=== PATIENT | male | born 1940 | race Two or more races ===

== ENCOUNTER → 2020-11-13 08:00 | Outpatient (CLI) | payer OTHER ==
[~2020-11-13] VITALS: Ht 175.3 cm; Wt 78.0 kg
[~2020-11-13 08:00] MED LIST: AMILODIPINE PO; ATORVASTATIN CA40 MG PO; FORTAMET500 MG PO; TOPROL XL50 M1 PO
== END | disposition home or self-care (01) ==
LOC: SURH → LAB 08:00 → EDSTATUS 11-22 12:20 → CIR.AMB 11-22 16:30 → SURH 11-22 16:32 → EDSTATUS 11-22 16:32
PROVIDERS: ATTEND Surgery
DX: E21.4 Other specified disorders of parathyroid gland (principal); Z03.818 Encounter for observation for suspected exposure to other biological agents ruled out; E21.0 Primary hyperparathyroidism

== ENCOUNTER 2021-04-15 04:50 | Day surgery (SDC) | payer OTHER ==
[~2021-04-15 04:50] MED LIST changes: +ASPIR PO; +CENTRUM ADULT120 MCG PO; +NORVAS PO; +[UNRECOGNIZED DRUG - CODE] PO
[2021-04-15] MEDS ORDERED: PERCOCET 5-3251 EACH PO (08:52)
== END 2021-04-15 11:10 | disposition home or self-care (01) ==
LOC: CIR.AMB 04:50
PROVIDERS: ATTEND Surgery
DX: D35.1 Benign neoplasm of parathyroid gland (principal); E21.0 Primary hyperparathyroidism; I25.10 Atherosclerotic heart disease of native coronary artery without angina pectoris; I10 Essential (primary) hypertension; Z95.5 Presence of coronary angioplasty implant and graft; Z87.891 Personal history of nicotine dependence; Z85.46 Personal history of malignant neoplasm of prostate; R73.03 Prediabetes